=== PATIENT | male | born 1960 | race Two or more races ===

== ENCOUNTER 2018-09-28 15:59 | Emergency (ER) | payer OTHER ==
[~2018-09-28] VITALS: Ht 162.6 cm; Wt 86.2 kg
[2018-09-28 16:31] LABS: Basophils # (auto) 0.1 uL; Basophils % (auto) 0.5 % (0.0-2.0); Eosinophils # (auto) 1.5 uL; Eosinophils % (auto) 12.6 % (0.0-7.0); Hematocrit 43.4 % (41.0-53.0); Hemoglobin 14.8 g/dL (13.5-17.5); Lymphocytes # (auto) 1.9 uL; Lymphocytes % (auto) 15.7 % (10.0-50.0); Mean Corpuscular Hgb Conc. 34.1 g/dL (32.0-36.0); Mean Corpuscular Volume 90.8 fL (80.0-100.0); Monocytes # (auto) 0.9 uL; Monocytes % (auto) 7.8 % (0.0-12.0); Neutrophils # (auto) 7.7 uL; Neutrophils % (auto) 63.4 % (37.0-80.0); Nucleated Red Blood Cells % 0.3 %; Platelet Count (auto) 321 10^3/uL (140-450); Red Blood Cells 4.78 10^6/uL (4.5-5.90); Red Cell Distribution Width 13.8 % (11.8-14.3); White Blood Cell 12.1 10^3/uL (4.4-10.8)
[2018-09-28 16:46] LABS: Alanine Aminotransferase 44 U/L (16-61); Albumin 3.8 g/dL (3.4-5.0); Anion Gap 11 (5-15); Blood Urea Nitrogen 28 mg/dL (7-18); Carbon Dioxide 22 mmol/L (21-32); Chloride 109 mmol/L (98-107); Glucose 123 mg/dL (74-106); Potassium 3.9 mmol/L (3.5-5.1); Sodium 142 mmol/L (136-145)
[2018-09-28 16:49] LABS: INR < 0.93 (0.9-1.15); Partial Thromboplastin Time 26.3 sec (23.64-32.05)
[2018-09-28 16:51] LABS: Alkaline Phosphatase 108 U/L (45-117); Aspartate Aminotransferase 31 U/L (15-37); BUN/Creatinine Ratio 16.8; Bilirubin, Total 0.3 mg/dL (0.2-1.0); GFR African American 54 mL/min; GFR Non-African American 45 mL/min; Total Protein 8.2 g/dL (6.4-8.2)
[2018-09-28] MEDS ORDERED: cefTRIAXone 1GM/50ML D5W 50 ML IV ONE (17:15)
[2018-09-28] MEDS ORDERED: FUROSEMIDE 40 MG/4 ML VIAL IV ONE (17:15)
[2018-09-28] MEDS ORDERED: AZITHROMYCIN 500MG/ 250ML 250 ML IV ONE (17:15)
[2018-09-28 22:56] LABS: Urine Bacteria NONE SEEN /hpf (None Seen); Urine Blood Negative /uL (Negative); Urine Mucus FEW (None Seen); Urine Specific Gravity 1.017 (1.001-1.035); Urine WBC <1 /hpf (0 - 3)
[2018-09-29] MEDS ORDERED: IPRATROPIUM BROM 0.5 MG/2.5ML INH SOL NEB ONE (01:00)
[2018-09-29] MEDS ORDERED: ALBUTEROL SULF 2.5 MG/0.5ML(0.5%) NEB SOLN NEB ONE (01:00)
[2018-09-29] MEDS ORDERED: methylPREDNISolone SOD SUCC 125 MG/2 ML VL IV ONE (01:00)
[2018-09-29 04:29] VITALS: BP 124/78
[2018-09-29] MEDS ORDERED: LEVOFLOXACIN 500 MG TAB PO ONE (05:15)
== END 2018-09-29 05:30 | disposition home or self-care (01) ==
LOC: ER 15:59
DX: E11.22 Type 2 diabetes mellitus with diabetic chronic kidney disease (principal); I13.0 Hypertensive heart and chronic kidney disease with heart failure and stage 1 through stage 4 chronic kidney disease, or unspecified chronic kidney disease; J18.9 Pneumonia, unspecified organism; N18.9 Chronic kidney disease, unspecified; I50.89 Other heart failure; Z86.73 Personal history of transient ischemic attack (TIA), and cerebral infarction without residual deficits; Z90.49 Acquired absence of other specified parts of digestive tract
CPT/HCPCS: 36415; 36600; 71045; 80053; 81001; 82805; 83880; 84484; 85025; 85610; 85730; 93005; 94640; 96365; 96366; 96368; 96375; 99284; J0456; J0696; J1940; J2930; J7611; J7644

== ENCOUNTER 2024-10-23 10:52 | Emergency (ER) | payer OTHER ==
[~2024-10-23] VITALS: Ht 325.1 cm; Wt 78.0 kg
--- NOTE | 2024-10-23 11:18 | ED.PDOC ---
HPI (NEURO) HPI Comments 64 y.o male with PMHx of a CVA x 2019, HTN, and asthma, presents to the ED for a chief complaint of right sided weakness associated with difficulty speech that started at 1400 yesterday. Patient additionally has word finding difficulties, headaches x 1-2 days, SOB and dizziness. Patient is on Plavix and ASA 81mg due to previous CVA. Patient is tearful on presentation, alert and oriented. Chief Complaint: Right Sided Weakness Time Seen by MD: 11:00 Reviewed Notes: Nurses Notes, Medications, Allergies Information Source: Patient, Relative (Mother) Mode of Arrival: Ambulatory Severity: Moderate Dizziness/Weakness Severity: Unable to do activities Headache Severity: Moderate Timing: Hours Duration: Since onset Headache Quality: Aching, Sharp Headache Location: Generalized Onset: At rest Circumstances: Spontaneous Symptoms: Weakness, Difficult speech History of: CVA, Hypertension Associated Signs and Symptoms: Weakness Past Medical History PAST MEDICAL HISTORY: Asthma, CVA, HTN Surgical History: PTCA Family History Family History: Reviewed,noncontributory to illness Social History Smoker: Non-Smoker Alcohol: Denies ETOH Use Drugs: Denies Drug Use Lives In: Home Constitutional: denies: chills, diaphoresis, fatigue, fever, malaise, sweats, weakness, others EENTM: denies: blurred vision, double vision, ear bleeding, ear discharge, ear drainage, ear pain, ear ringing, eye pain, eye redness, hearing loss, mouth pain, mouth swelling, nasal discharge, nose bleeding, nose congestion, nose pain, photophobia, tearing, throat pain, throat swelling, voice changes, others Respiratory: reports: SOB at rest, shortness of breath; denies: cough, hemoptysis, orthopnea, SOB with excertion, stridor, wheezing, others Cardiovascular: denies: chest pain, dizzy spells, diaphoresis, Dyspnea on exertion, edema, irregular heart beat, left arm pain, lightheadedness, palpitations, PND, syncope, others Gastrointestinal: denies: abdomen distended, abdominal pain, blood streaked bowels, constipated, diarrhea, dysphagia, difficulty swallowing, hematemesis, melena, nausea, poor appetite, poor fluid intake, rectal bleeding, rectal pain, vomiting, others Genitourinary: denies: burning, dysuria, flank pain, frequency, hematuria, incontinence, penile discharge, penile sore, pain, testicle pain, testicle swelling, urgency, others Neurological: reports: dizziness, headache, right sided weakness, speech problems; denies: fainting, left sided numbness, left sided weakness, numbness, paresthesia, pre-existing deficit, right sided numbness, seizure, tingling, tremors, weakness, others Musculoskeletal: denies: back pain, gout, joint pain, joint swelling, muscle pain, muscle stiffness, neck pain, others Integumetry: denies: bruises, change in color, change in hair/nails, dryness, laceration, lesions, lumps, rash, wounds, others Allergic/Immunocompromised: denies: Difficulty Healing, Frequent Infections, Hives, Itching, others Hematologic/Lymphatic: denies: anemia, blood clots, easy bleeding, easy bruising, swollen glands, others Endocrine: denies: excessive hunger, excessive sweating, excessive thirst, excessive urination, flushing, intolerance to cold, intolerance to heat, unexplained weight gain, unexplained weight loss, others Psychiatric: denies: anxiety, bipolar disorder, depression, hopeless, panic di sorder, schizophrenia, sleepless, suicidal, others All Other Systems: Reviewed and Negative Physical Exam General Appearance: Mild Distress, Other (Tearful on examination ) HEENT: Normal ENT Inspection Neck: Normal Inspection Respiratory: No Accessory Muscle Use, No Respiratory Distress Cardiovascular: Normal Peripheral Pulses, Regular Rate/Rhythm Breast Exam: Deferred Gastrointestinal: NOT DONE Genitalia: Deferred Pelvic: Deferred Rectal: Deferred Extremities: Normal inspection Neurologic: Alert, Motor Weakness (right sided ), Speech Problem ( word finding difficulties) Cerebellar Function: Unable to Test Reflexes: NOT DONE Skin: Dry, Normal Color Lymphatic: NOT DONE Was a procedure done? Was a procedure done?: No Differential Diagnosis (SZ) CVA: CVA, Electrolyte Imbalance, Encephalopathy, TIA X-Ray, Labs, Meds, VS Vital Signs Date Time Temp Pulse Resp B/P (MAP) Pulse Ox O2 Delivery O2 Flow Rate FiO2 10/23/24 10:57 111 10/23/24 10:54 98.4 110 18 158/105 94 98.4 Lab Test 10/23/24 13:11 10/23/24 11:30 Range/Units Troponin I High Sensitivity 39 49 </=54 ng/L White Blood Count 9.2 4.4-10.8 10^3/uL Red Blood Count 6.16 H 4.5-5.90 10^6/uL Hemoglobin 15.8 13.5-17.5 g/dL Hematocrit 48.6 41.0-53.0 % Mean Corpuscular Volume 78.9 L 80.0-100.0 fL Mean Corpuscular Hemoglobin 25.7 L 28.0-32.0 pg Mean Corpuscular Hemoglobin Concent 32.5 32.0-36.0 g/dL Red Cell Distribution Width 18.3 H 11.8-14.3 % Platelet Count 390 140-450 10^3/uL Mean Platelet Volume 8.1 6.9-10.8 fL Neutrophils (%) (Auto) 67.2 37.0-80.0 % Lymphocytes (%) (Auto) 23.4 10.0-50.0 % Monocytes (%) (Auto) 7.1 0.0-12.0 % Eosinophils (%) (Auto) 2.0 0.0-7.0 % Basophils (%) (Auto) 0.3 0.0-2.0 % Neutrophils # (Auto) 6.2 1.6-8.6 10 ^3/uL Lymphocytes # (Auto) 2.2 0.4-5.4 10 ^3/uL Monocytes # (Auto) 0.7 0-1.3 10 ^3/uL Eosinophils # (Auto) 0.2 0-0.8 10 ^3/uL Basophils # (Auto) 0 0-0.2 10 ^3/uL Nucleated Red Blood Cells 0.1 % Prothrombin Time 10.0 9.3-11.8 sec Prothrombin Time INR 0.94 0.9-1.15 Activated Partial Thromboplast Time 25.8 24.5-34.5 SEC Sodium Level 140 136-145 mmol/L Potassium Level 4.5 3.5-5.1 mmol/L Chloride Level 103 98-107 mmol/L Carbon Dioxide Level 27 20-31 mmol/L Anion Gap 10 5-15 Blood Urea Nitrogen 11 9-23 mg/dL Creatinine 1.35 H 0.700-1.30 mg/dL Glomerular Filtration Rate Calc 58 >90 mL/min BUN/Creatinine Ratio 8.1 L 10.0-20.0 Serum Glucose 203 H 74-106 mg/dL Calcium Level 9.9 8.7-10.4 mg/dL Magnesium Level 1.8 1.6-2.6 mg/dL Total Bilirubin 0.4 0.2-1.0 mg/dL Aspartate Amino Transferase (AST) 19 13-40 U/L Alanine Aminotransferase (ALT) 20 7-40 U/L Alkaline Phosphatase 148 H 46-116 U/L B-Type Natriuretic Peptide 60.20 0-100 pg/mL Total Protein 7.5 5.7-8.2 g/dL Albumin 4.8 3.2-4.8 g/dL X-Ray, Labs, Meds, VS Comment This 64-year-old male presents to emergency room secondary to right-sided weakness. Patient has residual left-sided weakness from previous stroke. The patient states his symptoms began 2:00 p.m. yesterday. As such, a code stroke was not called. Here, there is no obvious findings on his CT head. However, x- ray shows a pneumonia. He had had blood cultures drawn and was started on Rocephin and azithromycin for is community-acquired pneumonia. However, secondary to his multiple findings, he will be admitted for further workup and management. Time of 1ST Reevaluation: 12:00 Reevaluation 1ST: Unchanged Patient Education/Counseling: Diagnosis, Treatment, Prognosis Family Education/Counseling: No Family Present Departure 1 Departure Time of Disposition: 13:44 Impression: Primary Impression: Right sided weakness Additional Impression: Pneumonia Disposition: ADMITTED INPATIENT Admit to: [facility] Condition: Guarded Discharged With: Self Critical Care Note Critical Care Time?: No Stability Stability form required: No I personally scribed for TANYA ORTIZ MD ([email or web address]) on 10/23/24 at 11:18. Electronically submitted by Alisa Alvarenga ([employer] I personally scribed for TANYA ORTIZ MD ([email or web address]) on 10/23/24 at 11:21. Electronically submitted by Alisa Alvarenga ([employer] TANYA ORTIZ MD Oct 23, 2024 11:18
[2024-10-23 11:57] LABS: Hematocrit 48.6 % (41.0-53.0); Hemoglobin 15.8 g/dL (13.5-17.5); Mean Corpuscular Hemoglobin 25.7 pg (28.0-32.0); Mean Corpuscular Volume 78.9 fL (80.0-100.0); Nucleated Red Blood Cells % 0.1 %
--- NOTE | 2024-10-23 11:59 | DVH ---
CLINICAL INFORMATION: Acute loss of consciousness. TECHNIQUE: Axial imaging was obtained through the brain without contrast. Coronal and sagittal reform atted images were obtained, reviewed, and stored. Images were reviewed in brain and bone windows. Al l CT scans at this medical facility are performed using dose modulation techniques as appropriate to a performed exam including the following: Automated exposure control was utilized; adjustment of the MA and/or KV according to patient size; and use of iterative reconstruction technique. CTDIvol = 53.4 8 mGy DLP = 966.04 mGy-cm COMPARISON: None FINDINGS: There is no acute intracranial hemorrhage. No mass effect or midline shift. Scattered areas of hypoattenuation are seen in the periventricular and subcortical white matter, which are nonspecif ic but most likely sequelae of small vessel ischemic disease. The ventricles and sulci are within nor mal limits in size for age. Basal cisterns are patent. The calvarium is unremarkable. Paranasal sinu ses and mastoid air cells are clear. IMPRESSION: 1. No CT evidence of acute intracranial abnormality. 2. Nonacute findings as described above.
--- NOTE | 2024-10-23 12:00 | DVH ---
CHEST RADIOGRAPH Indication: sob Technique: Single frontal view of the chest was obtained COMPARISON: None FINDINGS: Lines and Tubes: None Lungs: Minimal patchy left basilar infiltrate. The remaining lung zones are clear. No evidence of f ocal consolidation. Pleura: No effusion. No pneumothorax. Cardiomediastinal contours: Unremarkable Bones: Unremarkable IMPRESSION: 1. Minimal patchy left basilar pulmonary infiltrate.
[2024-10-23 12:11] LABS: INR 0.94 (0.9-1.15); Partial Thromboplastin Time 25.8 SEC (24.5-34.5); Prothrombin Time 10.0 sec (9.3-11.8)
[2024-10-23 12:12] LABS: Alanine Aminotransferase 20 U/L (7-40); Albumin 4.8 g/dL (3.2-4.8); Anion Gap 10 (5-15); BUN/Creatinine Ratio 8.1 (10.0-20.0); Bilirubin, Total 0.4 mg/dL (0.2-1.0); Blood Urea Nitrogen 11 mg/dL (9-23); Calcium 9.9 mg/dL (8.7-10.4); Carbon Dioxide 27 mmol/L (20-31); Chloride 103 mmol/L (98-107); Magnesium 1.8 mg/dL (1.6-2.6); Potassium 4.5 mmol/L (3.5-5.1); Sodium 140 mmol/L (136-145); Total Protein 7.5 g/dL (5.7-8.2)
[2024-10-23 12:17] LABS: Alkaline Phosphatase 148 U/L (46-116); Glucose 203 mg/dL (74-106)
[2024-10-23] MEDS: cefTRIAXone 1GM/50ML D5W 50 ML IV ONE (14:02)
[2024-10-23] MEDS: SODIUM CHLORIDE 0.9% 1,000 ML IV ONE (14:27)
[2024-10-23] MEDS: AZITHROMYCIN 500MG/ 250ML 250 ML IV ONE (14:28)
[2024-10-23] MEDS ORDERED: METH4PAK PO (15:34)
[2024-10-23] MEDS ORDERED: LEVO750T40 PO (15:44)
[2024-10-23] MEDS ORDERED: ALBUAER3 IN (15:45)
[2024-10-23] MEDS ORDERED: ATOR40TA52 PO (15:46)
[2024-10-23] MEDS: ALBUTEROL SULF 2.5 MG/0.5ML(0.5%) NEB SOLN NEB ONE (15:47)
[2024-10-23] MEDS: IPRATROPIUM BROM 0.5 MG/2.5ML INH SOL NEB ONE (15:47)
--- NOTE | 2024-10-23 15:53 | DVH ---
Carotid Duplex Date: 10/23/2024 03:16 PM Clinical History: Carotid stenosis evaluation Comparison: None Technique: Duplex Doppler evaluation of the extracranial carotid and vertebral arteries including col or Doppler and spectral/pulsed waveform analysis was performed. Findings: RIGHT SIDE: The peak systolic velocities are 89 cm/s in the distal CCA and 123 cm/s in the proximal ICA.The ICA/C CA ratio is less than 2. The external carotid artery is patent with peak systolic velocity of 153 cm/s proximally. The right vertebral artery is not definitely visualized. LEFT SIDE: The peak systolic velocities are 69 cm/s in the distal CCA and 107 cm/s in the proximal ICA.. The ICA /CCA ratio is less than 2. The external carotid artery is patent with peak systolic velocity of 162 cm/s proximally. There is appropriate antegrade flow in the left vertebral artery. IMPRESSION: No hemodynamically significant stenosis noted in the right carotid system. No hemodynamically significant stenosis noted in the left carotid system. The right vertebral artery is not definitely visualized. Reference: Radiology 2003; 229:340-346
[2024-10-23] MEDS: methylPREDNISolone SOD SUCC 40 MG/ML VL IV ONE (16:10)
--- NOTE | 2024-10-23 16:22 | DVHDS2 ---
Discharge Summary Date of Admission Date of Discharge: Oct 23, 2024 Labs/Diagnostic Data: Laboratory Results Test 10/23/24 14:21 10/23/24 11:30 Troponin I High Sensitivity 38 ng/L (</=54) White Blood Count 9.2 10^3/uL (4.4-10.8) Red Blood Count 6.16 10^6/uL (4.5-5.90) Hemoglobin 15.8 g/dL (13.5-17.5) Hematocrit 48.6 % (41.0-53.0) Mean Corpuscular Volume 78.9 fL (80.0-100.0) Mean Corpuscular Hemoglobin 25.7 pg (28.0-32.0) Mean Corpuscular Hemoglobin Concent 32.5 g/dL (32.0-36.0) Red Cell Distribution Width 18.3 % (11.8-14.3) Platelet Count 390 10^3/uL (140-450) Mean Platelet Volume 8.1 fL (6.9-10.8) Neutrophils (%) (Auto) 67.2 % (37.0-80.0) Lymphocytes (%) (Auto) 23.4 % (10.0-50.0) Monocytes (%) (Auto) 7.1 % (0.0-12.0) Eosinophils (%) (Auto) 2.0 % (0.0-7.0) Basophils (%) (Auto) 0.3 % (0.0-2.0) Neutrophils # (Auto) 6.2 10 ^3/uL (1.6-8.6) Lymphocytes # (Auto) 2.2 10 ^3/uL (0.4-5.4) Monocytes # (Auto) 0.7 10 ^3/uL (0-1.3) Eosinophils # (Auto) 0.2 10 ^3/uL (0-0.8) Basophils # (Auto) 0 10 ^3/uL (0-0.2) Nucleated Red Blood Cells 0.1 % Prothrombin Time 10.0 sec (9.3-11.8) Prothrombin Time INR 0.94 (0.9-1.15) Activated Partial Thromboplast Time 25.8 SEC (24.5-34.5) Sodium Level 140 mmol/L (136-145) Potassium Level 4.5 mmol/L (3.5-5.1) Chloride Level 103 mmol/L (98-107) Carbon Dioxide Level 27 mmol/L (20-31) Anion Gap 10 (5-15) Blood Urea Nitrogen 11 mg/dL (9-23) Creatinine 1.35 mg/dL (0.700-1.30) Glomerular Filtration Rate Calc 58 mL/min (>90) BUN/Creatinine Ratio 8.1 (10.0-20.0) Serum Glucose 203 mg/dL (74-106) Calcium Level 9.9 mg/dL (8.7-10.4) Magnesium Level 1.8 mg/dL (1.6-2.6) Total Bilirubin 0.4 mg/dL (0.2-1.0) Aspartate Amino Transferase (AST) 19 U/L (13-40) Alanine Aminotransferase (ALT) 20 U/L (7-40) Alkaline Phosphatase 148 U/L (46-116) B-Type Natriuretic Peptide 60.20 pg/mL (0-100) Total Protein 7.5 g/dL (5.7-8.2) Albumin 4.8 g/dL (3.2-4.8) Other Laboratory Tests 10/23/24 11:30 Brief Hx & Hospital Course: Patient is a 64-year-old male with past medical history of COPD, history of CVA with left-sided deficits and speech difficulty, type 2 diabetes, spinal stenosis, hypertension, CKD stage III, history of NV with 2 stents in 2019 who presents with complaints of right-sided weakness for the past day and associated shortness of breath with headache. Patient presented with vitals notable for sinus tachycardia in the 110s. Pulse ox was noted to be greater than 94% without any signs of respiratory distress. CBC was within normal limits. BMP revealed creatinine of 1.35 consistent with patient's history of CKD stage III. Troponin was nonelevated. BNP was not elevated. Chest x-ray was done which suggested minimal patchy left pulmonary. Patient was given 1 L NS bolus, azithromycin, Solu-Medrol and DuoNeb breathing treatment. Patient also underwent CT brain without contrast which did not reveal any acute intracranial abnormalities. A carotid ultrasound was done which did not reveal any significant stenosis. Patient was evaluated at bedside and was noted to be tearful at times during his interview. He is accompanied by his mother. She assists in providing some of the history. She notes that the patient has been lethargic. Presented today due to increased weakness. She notes that the patient is at his baseline in terms of his speech difficulty. His weakness appears to be equal on the right upper and lower extremity. Patient's symptoms were noted to began at 1400 the day prior to admission. Physical exam did not reveal any new facial droop. Movement appears symmetrical in his extremities with some decreased movement that is chronically present on his left side. Patient notes that he takes aspirin and Plavix for his prior stroke and has been compliant with his medication. Patient was monitored for several hours with no worsening changes in symptoms. Patient was discharged on Levaquin, Medrol Dosepak, albuterol inhaler for his pneumonia. Patient is to continue aspirin and Plavix for his prior CVA. Although patient's presentation is consistent with generalized weakness due to underlying infection, I have informed the patient that we will be obtaining an MRI brain stat outpatient the following day to rule out any new CVA. Patient is already on appropriate medical therapy for CVA of aspirin and Plavix. Atorvastatin 40 mg was prescribed. Patient was given ER return precautions if symptoms worsen or do not improve. Patient and accompanying mother were in agreement with the plan. Overall, patient discharged in stable condition. [facility] case management to arrange imaging and follow-up appointments. Condition at Discharge: Good Final Diagnosis/Problems List Pneumonia Secondary Diagnosis: Generalized Weakness without Focal Deficit Discharge Disposition: Home Discharge Instruct/Medications Diet: Cardiac 2g Na,low cholest Activity: No Restrictions, As Tolerated Follow Up/Referral: MRI brain WO contrast to be completed outpatient. [facility] Case Management will contact you for appointment. Medications: Continue aspirin and plavix as taking previously. Take atorvastatin 40mg daily. Take levaquin, medrol dose pack and albuterol inhaler for pneumonia. Scheduled Atorvastatin Calcium (Atorvastatin Calcium), 40 MG PO DAILY Levofloxacin Hemihydrate (Levofloxacin), 1 TAB PO DAILY Methylprednisolone (Medrol Dosepak), 4 MG PO UD Scheduled PRN Albuterol Sulfate (Ventolin Mdi), 90 MCG IN Q4HP PRN Discharge Statement: "Patient was advised to return to the ER or call 911 if any headaches, dizziness, shortness of breath, chest pain, abdominal pain, bleeding, fevers, or worsening of medical condition. Patient was counseled about treatment plan, medications, possible side effects, patientverbalized understanding. All questions were answered to the best of my ability. This discharge took greater then 30 minutes in planning, reviewing documentation, counseling the patient, and discussing with other team members." ASSESSMENT ASSESSMENT Assessment Pneumonia GM SELF DO Oct 23, 2024 16:22
[2024-10-23 17:03] VITALS: BP 165/96; PULSE 113; RESP 20; TEMP 98.1; O2SAT 94
--- NOTE | 2024-10-24 07:42 | ECG ---
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
== END 2024-10-23 17:05 | disposition home or self-care (01) ==
LOC: EDUNIT# 10:52 → ER 10:52
DX: J18.9 Pneumonia, unspecified organism (principal); R53.1 Weakness; R06.02 Shortness of breath; I10 Essential (primary) hypertension; Z79.899 Other long term (current) drug therapy; Z86.73 Personal history of transient ischemic attack (TIA), and cerebral infarction without residual deficits; Z79.02 Long term (current) use of antithrombotics/antiplatelets
CPT/HCPCS: 36415; 70450; 71045; 80053; 82947; 83735; 83880; 84484; 85025; 85610; 85730; 87040; 93005; 93886; 94640; 96365; 96366; 96368; 96375; 99285; J0456; J0696; J2919; J7030

== ENCOUNTER 2024-11-22 11:30 | Emergency (ER) | payer MEDICAID, OTHER ==
[~2024-11-22] VITALS: Ht 167.6 cm; Wt 80.0 kg
[~2024-11-22 11:30] MED LIST: ALBUAER3 IN; ATOR40TA52 PO; LEVO750T40 PO; METH4PAK PO
--- NOTE | 2024-11-22 12:23 | DVH ---
EXAM: CT CT AB PEL WO CON-NO ORAL OR IV INDICATION: flank pain TECHNIQUE: Volumetric multidetector CT images of the abdomen and pelvis were obtained without contras t. All CT scans at this facility use dose modulation, iterative reconstruction, and/or weight based d osing when appropriate to reduce radiation dose to as low as reasonably achievable. COMPARISON: None FINDINGS: [LOWER CHEST]: The partially visualized lung bases are clear without a pleural effusion. The cardiac size is normal without pericardial effusion. Coronary artery calcifications. [LIVER]: Normal hepatic size without suspicious focal lesion. [GALLBLADDER AND BILIARY TREE]: Surgically absent. [SPLEEN]: Unremarkable. [PANCREAS]: Unremarkable. [ADRENAL GLANDS]: Unremarkable [KIDNEYS]: No hydronephrosis. No nephroureterolithiasis. [BLADDER]: Minimal circumferential bladder wall thickening. Consider correlation with urinalysis. [REPRODUCTIVE ORGANS]: Unremarkable. [BOWEL/MESENTERY]: Stomach is normal. No CT evidence of bowel obstruction. Mild descending and sigmoi d colonic diverticulosis. Mild stool burden. [ASCITES]: Absent [LYMPHADENOPATHY]: No pathologically enlarged lymph nodes by CT size criteria [VASCULATURE]: No aneurysmal dilatation. [ABDOMINAL WALL]: Unremarkable. [MUSCULOSKELETAL]: No acute fracture or aggressive focal osseous lesion. Multifocal degenerative ogden ge of the visualized spine. IMPRESSION: 1. No hydronephrosis or nephroureterolithiasis. 2. Minimal circumferential bladder wall thickening. 3. Consider correlation with urinalysis. 4. Mild stool burden.
[2024-11-22 12:27] LABS: Hematocrit 47.4 % (41.0-53.0); Hemoglobin 15.7 g/dL (13.5-17.5); Mean Corpuscular Hemoglobin 26.3 pg (28.0-32.0); Mean Corpuscular Volume 79.4 fL (80.0-100.0); Nucleated Red Blood Cells % 0.1 %
[2024-11-22 12:39] LABS: Alanine Aminotransferase 28 U/L (7-40); Albumin 4.6 g/dL (3.2-4.8); Anion Gap 11 (5-15); BUN/Creatinine Ratio 7.5 (10.0-20.0); Bilirubin, Total 0.6 mg/dL (0.2-1.0); Blood Urea Nitrogen 9 mg/dL (9-23); Calcium 9.6 mg/dL (8.7-10.4); Carbon Dioxide 27 mmol/L (20-31); Chloride 104 mmol/L (98-107); Potassium 3.8 mmol/L (3.5-5.1); Sodium 142 mmol/L (136-145); Total Protein 7.6 g/dL (5.7-8.2)
[2024-11-22 12:41] LABS: Alkaline Phosphatase 159 U/L (46-116); Glucose 155 mg/dL (74-106)
[2024-11-22 13:12] LABS: Lactic Acid w/Reflex 2.4 mmol/L (0.4-2.0)
--- NOTE | 2024-11-22 13:13 | ED.PDOC ---
General HPI Comments HPI: 64 y/o M, with PMHx of DM, HTN, CKF, and COPD presents to the ED for CC of flank pain. Patient states, he has been experiencing constant right-sided flank pain that radiates to his lower back [id number]. Patient reports, pain to worsen with repositioning. Patient denies nausea, vomiting, fever, hematuria, scrotal swelling, or penile discharge. No other symptoms or modifying factors are present at this time. Initial Vitals BP: HR: RR: O2 Sat: Temp: Past Medical history: DM, CVA, HTN, CKF, COPD, RIGHT-SIDED DEFICITS Past Surgical history: DENIES ANY Medications: Plavix, Aspirin Social History: Denies smoking, ETOH, and drug use. Allergies: Doxycycline HPI: Poor Historian. REVIEW OF SYSTEMS: CONSTITUTIONAL: Denies acute: fever, diaphoresis, chills, generalized weakness. HEAD: Denies acute: headache, photophobia Eyes: Denies acute: Double vision, vision loss, eye pain, eye discharge. EARS: Denies acute: tinnitus, hearing loss, ear discharge, ear pain, THROAT: Denies acute: sore throat, swelling, difficulty swallowing , pain with swallowing, change in voice. NECK: Denies acute: neck pain, neck swelling, stiff neck. HEART: Denies acute : chest pain, palpitations, LUNGS: Denies acute: SOB, wheezing, cough, hemoptysis ABDOMEN: Denies acute: abdominal pain, Nausea, Vomiting, diarrhea, melena , hematemesis, hematochezia SKIN: Denies acute: rash, redness, lesions, itchiness. EXTREMITIES: Denies acute: calf pain, numbness, tingling, weakness, denies pain in extremity. Denies acute: Low back pain. Neuro: Denies acute: focal neurological deficit, motor or sensory focal neurological deficit, tremors, seizure like activity, confusion, dizziness, change in mental status, loss of bowel or bladder function, cauda equina like symptoms. : Denies acute: dysuria, hematuria, increase in urinary frequency. PSYCH: Denies acute: hallucination, suicidal ideation, homicidal ideation. PHYSICAL EXAM: General: ----moderate----acute distress, awake and alert. Head: normocephalic, atraumatic. Neck: supple, trachea is midline, no swelling. Throat: Normal phonation. Eyes:, no erythema, no purulent discharge, no proptosis, no icterus. Heart: regular rate, regular rhythm, no significant murmur appreciated. Lungs: no apparent respiratory distress, Able to speak in full sentences. No wheezing, no rhonchi, no crackles. No stridors Clear to auscultation bilaterally. Abdomen: non tender to palpation, non distended, soft, no guarding, no rebound, + bowel sounds. Neuro: Awake, Alert, oriented to name, self, situation, follows commands. At baseline with right-sided deficits from a previous stroke. GCS=15. Speech is normal. Skin: no petechia, no purpura, no cyanosis, non-pale, not jaundice. Lower extremities: --no - Pitting edema no deformity, no focal swelling, no calf TTP. Makes eye contact. Face: no apparent facial droop. Right CVA tenderness to percussion ED COURSE: DISCLAIMER: This medical document was created using an electronic medical record system with voice recognition software and computerized dictation system. Although this document has been carefully reviewed, there might still be some phonetic and typographical errors. Occasional wrong-word or "sound-alike" substitutions may have occurred due to the inherent limitations of voice recognition software. These areas are purely typographical due to imperfections of the software programs and do not reflect any compromise in the patient's medical care. Please read the chart carefully and recognize, using context, where these substitutions have occurred. Chief Complaint: Flank Pain Time Seen by MD: 12:00 Primary Care Provider: RAYNA Reviewed notes: Nurses Notes, Medications, Allergies Allergies: Coded Allergies: Doxycycline (Unverified Allergy, Severe, 10/23/24) No Known Drug Allergy (Verified Allergy, Unknown, 09/28/18) Home Meds Active Scripts Atorvastatin Calcium (ATORVASTATIN CALCIUM) 40 Mg Tab, 40 MG PO DAILY for 30 Days, #30 TAB 0 Refills Prov:GM SELF S DO 10/23/24 Albuterol Sulfate (VENTOLIN MDI) 90 Mcg Ih, 90 MCG IN Q4HP PRN for 30 Days, #30 INH 2 Refills Prov:GM SELF DO 10/23/24 Levofloxacin Hemihydrate (LEVOFLOXACIN) 750 Mg Tab, 1 TAB PO DAILY, #5 TAB Prov:GM SELF DO 10/23/24 Methylprednisolone (Medrol Dosepak) 4 Mg Abraham, 4 MG PO UD, #21 TAB UAD Prov:GM SELF DO 10/23/24 Information Source: Patient, Relative (Mother) Mode of Arrival: Wheelchair Severity: Moderate Inability to void: None Timing: Days Duration: Since onset Prehospital treatment: None Onset: Spontaneous Symptoms: None History of: None Location: (R) Flank Penile discharge: None Modifying factors: None associated signs and symptoms: Flank Pain Was a procedure done? Was a procedure done?: No Differential Diagnosis Kidney stone (Female): N/A Kidney stone (Male): Cholelithiasis, Strain, Urinary obstruction, Urolithiasis, Urinary tract infection, Other (Flank Pain;DDX include Nephrolethiasis, obstructive uropathy, kidney cancer, renal infarct, intraabdominal neoplasm, lower lobe pneumonia, retroperitoneal hemorrhage, pancreatitis, aneurysm, dissection, musculoskeletal, rib contusion/trauma, hematoma, PYLONEPHRITIS, muscle strain, spinal disease. ) X-Ray, Labs, Meds, VS Vital Signs Date Time Temp Pulse Resp B/P (MAP) Pulse Ox O2 Delivery O2 Flow Rate FiO2 11/22/24 16:10 98.7 99 17 137/82 (100) 95 98.7 11/22/24 16:10 99 16 95 Room Air 11/22/24 15:56 97.7 104 18 150/90 (110) 95 97.7 11/22/24 13:16 97.5 75 16 158/92 (114) 95 97.5 11/22/24 11:32 98.2 102 18 140/95 97 98.2 Lab Test 11/22/24 14:01 11/22/24 12:07 11/22/24 11:56 Range/Units Lactic Acid Level 1.4 2.4 *H 0.4-2.0 mmol/L White Blood Count 8.4 4.4-10.8 10^3/uL Red Blood Count 5.97 H 4.5-5.90 10^6/uL Hemoglobin 15.7 13.5-17.5 g/dL Hematocrit 47.4 41.0-53.0 % Mean Corpuscular Volume 79.4 L 80.0-100.0 fL Mean Corpuscular Hemoglobin 26.3 L 28.0-32.0 pg Mean Corpuscular Hemoglobin Concent 33.1 32.0-36.0 g/dL Red Cell Distribution Width 16.8 H 11.8-14.3 % Platelet Count 427 140-450 10^3/uL Mean Platelet Volume 7.5 6.9-10.8 fL Neutrophils (%) (Auto) 71.0 37.0-80.0 % Lymphocytes (%) (Auto) 18.2 10.0-50.0 % Monocytes (%) (Auto) 7.1 0.0-12.0 % Eosinophils (%) (Auto) 3.3 0.0-7.0 % Basophils (%) (Auto) 0.4 0.0-2.0 % Neutrophils # (Auto) 6.0 1.6-8.6 10 ^3/uL Lymphocytes # (Auto) 1.5 0.4-5.4 10 ^3/uL Monocytes # (Auto) 0.6 0-1.3 10 ^3/uL Eosinophils # (Auto) 0.3 0-0.8 10 ^3/uL Basophils # (Auto) 0 0-0.2 10 ^3/uL Nucleated Red Blood Cells 0.1 % Sodium Level 142 136-145 mmol/L Potassium Level 3.8 3.5-5.1 mmol/L Chloride Level 104 98-107 mmol/L Carbon Dioxide Level 27 20-31 mmol/L Anion Gap 11 5-15 Blood Urea Nitrogen 9 9-23 mg/dL Creatinine 1.20 0.700-1.30 mg/dL Glomerular Filtration Rate Calc 67 >90 mL/min BUN/Creatinine Ratio 7.5 L 10.0-20.0 Serum Glucose 155 H 74-106 mg/dL Calcium Level 9.6 8.7-10.4 mg/dL Total Bilirubin 0.6 0.2-1.0 mg/dL Aspartate Amino Transferase (AST) 21 13-40 U/L Alanine Aminotransferase (ALT) 28 7-40 U/L Alkaline Phosphatase 159 H 46-116 U/L Total Protein 7.6 5.7-8.2 g/dL Albumin 4.6 3.2-4.8 g/dL Urine Color Yellow Yellow Urine Clarity Clear Clear Urine pH 6.0 5.0-9.0 Urine Specific [place] 1.019 1.001-1.035 Urine Protein 2+ H Negative Urine Ketones Negative Negative Urine Blood Negative Negative /uL Urine Nitrite Negative Negative Urine Bilirubin Negative Negative Urine Urobilinogen 3 H Negative mg/dL Urine Leukocyte Esterase Negative Negative /uL Urine RBC None seen 0 - 3 /hpf Urine Microscopic WBC 1 0-3 /HPF Urine Squamous Epithelial Cells Few <5 /hpf Urine Bacteria None seen None Seen /hpf Urine Mucus Few None Seen Urine Glucose Normal Normal mg/dL [place] [address] Ph: [phone] DIAGNOSTIC IMAGING Diagnostic Imaging Report : [id number] Signed PATIENT: VALERIA CHAO ACCT: [id number] UNIT: [id number] : 1960 LOC: ER ROOM / BED: / AGE / SEX: 64 / M ADM STATUS: REG ER SERVICE 1143 ORDERING PHYSICIAN: BECCA VIVAR DO PROCEDURE(s): ABPL - CT AB PEL WO CON-NO ORAL OR IV REASON: flank pain ORDER NUMBER(s): [id number], ACCESSION NUMBER(s): [id number] EXAM: CT CT AB PEL WO CON-NO ORAL OR IV INDICATION: flank pain TECHNIQUE: Volumetric multidetector CT images of the abdomen and pelvis were obtained without contrast. All CT scans at this facility use dose modulation, iterative reconstruction, and/or weight based dosing when appropriate to reduce radiation dose to as low as reasonably achievable. COMPARISON: None FINDINGS: [LOWER CHEST]: The partially visualized lung bases are clear without a pleural effusion. The cardiac size is normal without pericardial effusion. Coronary artery calcifications. [LIVER]: Normal hepatic size without suspicious focal lesion. [GALLBLADDER AND BILIARY TREE]: Surgically absent. [SPLEEN]: Unremarkable. [PANCREAS]: Unremarkable. [ADRENAL GLANDS]: Unremarkable [KIDNEYS]: No hydronephrosis. No nephroureterolithiasis. [BLADDER]: Minimal circumferential bladder wall thickening. Consider correlation with urinalysis. [REPRODUCTIVE ORGANS]: Unremarkable. [BOWEL/MESENTERY]: Stomach is normal. No CT evidence of bowel obstruction. Mild descending and sigmoid colonic diverticulosis. Mild stool burden. [ASCITES]: Absent [LYMPHADENOPATHY]: No pathologically enlarged lymph nodes by CT size criteria [VASCULATURE]: No aneurysmal dilatation. [ABDOMINAL WALL]: Unremarkable. [MUSCULOSKELETAL]: No acute fracture or aggressive focal osseous lesion. Multifocal degenerative change of the visualized spine. IMPRESSION: 1. No hydronephrosis or nephroureterolithiasis. 2. Minimal circumferential bladder wall thickening. 3. Consider correlation with urinalysis. 4. Mild stool burden. ATED BY: JENNIFER COOLEY MD DICTATED DATE/TIME: 11/22/24 1220 SIGNED BY: JENNIFER COOLEY MD SIGNED DATE/TIME: 11/22/24 1220 CC: Time of 1ST Reevaluation: 12:30 Reevaluation 1ST: Unchanged Patient Education/Counseling: Diagnosis, Treatment Family Education/Counseling: Diagnosis, Treatment Comments Patient does not want to be admitted to the hospital. He wants to get out of here Patient's pain improved after [place]. MDM: patient presented with the above HPI.---flank pain---workup was initiated. patient was found with the above mentioned diagnosis. the following medications were ordered: please refer to order lists of meds and tests obtained by myself Dr. Vivar. Patient ED course and VS have been stabilized. Patient has been reassessed in the ED and remained in a stable condition. Patient has been observed in the ED adequate length of time to insure improvement/stability. Escalation of care considered: Consideration of escalation to observation or admission Patient was DISCHARGED home in a stable condition. All the reports of any imaging studies that were ordered by myself were reviewed by myself. SEPSIS Sepsis Screen Date sepsis recognized/suspect: Nov 22, 2024 Time Sepsis recognized/suspect: 1132 Recent Procedure: No On Antibiotic Therapy: No Respiratory Rate >20: No Heart Rate >90: Yes Temp<36 C (96.8 F) or >38.3 C: No SBP <90 or MAP <65 mmHG: No New Acute Mental Status Change: No Is the patient on CPAP, BIPAP,: No Physician Orders Ct Ab Pel Wo Con-No Oral Or Iv (11/22/24 11:43) Glass Presser (11/22/24 ) Vital Signs Date Time Temp Pulse Resp B/P (MAP) Pulse Ox O2 Delivery O2 Flow Rate FiO2 11/22/24 16:10 98.7 99 17 137/82 (100) 95 98.7 11/22/24 16:10 99 16 95 Room Air 11/22/24 15:56 97.7 104 18 150/90 (110) 95 97.7 11/22/24 13:16 97.5 75 16 158/92 (114) 95 97.5 11/22/24 11:32 98.2 102 18 140/95 97 98.2 Laboratory Tests Test 11/22/24 12:07 11/22/24 14:01 Lactic Acid Level 2.4 mmol/L (0.4-2.0) *H 1.4 mmol/L (0.4-2.0) White Blood Count 8.4 10^3/uL (4.4-10.8) Departure 1 Departure Time of Disposition: 16:33 Impression: Primary Impression: Right flank pain Disposition: 01 HOME / SELF CARE / HOMELESS Condition: Stable Additional Instructions: Additional instructions: Please read all instructions provided in this packet carefully. You MUST follow-up with your primary care/family doctor in 1 to 2 days. If you are unable to see your primary care/family doctor, please return to our emergency room for re-assessment and re-evaluation in 1 to 2 days. Return to the emergency room here in our facility or to the nearest ER [facility] if your symptoms change or worsen. CONSULTATIONS: you MUST Follow-up for consultation as soon as possible with: -urology and gastroenterology in 1-2 days. Please call for appointment. You MUST call the consultants office yourself to make an appointment. You may need to arrange that through your insurance and/or your primary/family doctor. If you are unable to see the regulatory services consultant in 1 to 2 days, you must return to our emergency room (or any other ER of your choice) for re-assessment and re- evaluation. Adequate fluid hydration. Although you have been discharged from the Emergency Department, this does not mean that you have a "clean bill of health". No definitive diagnosis for your symptoms has been made today. It is possible that you are in the process of developing a serious illness. This is why you must return to the ED without fail if any new or worsening symptoms develop. Below is a copy of your radiological report for follow up: [facility] [address] [facility] [address] Ph: [phone] DIAGNOSTIC IMAGING Diagnostic Imaging Report : [id number] Signed PATIENT: VALERIA CHAO ACCT: [id number] UNIT: [id number] : 1960 LOC: ER ROOM / BED: / AGE / SEX: 64 / M ADM STATUS: REG ER SERVICE 1143 ORDERING PHYSICIAN: BECCA VIVAR DO PROCEDURE(s): ABPL - CT AB PEL WO CON-NO ORAL OR IV REASON: flank pain ORDER NUMBER(s): [id number], ACCESSION NUMBER(s): [id number] EXAM: CT CT AB PEL WO CON-NO ORAL OR IV INDICATION: flank pain TECHNIQUE: Volumetric multidetector CT images of the abdomen and pelvis were obtained without contrast. All CT scans at this facility use dose modulation, iterative reconstruction, and/or weight based dosing when appropriate to reduce radiation dose to as low as reasonably achievable. COMPARISON: None FINDINGS: [LOWER CHEST]: The partially visualized lung bases are clear without a pleural effusion. The cardiac size is normal without pericardial effusion. Coronary artery calcifications. [LIVER]: Normal hepatic size without suspicious focal lesion. [GALLBLADDER AND BILIARY TREE]: Surgically absent. [SPLEEN]: Unremarkable. [PANCREAS]: Unremarkable. [ADRENAL GLANDS]: Unremarkable [KIDNEYS]: No hydronephrosis. No nephroureterolithiasis. [BLADDER]: Minimal circumferential bladder wall thickening. Consider correlation with urinalysis. [REPRODUCTIVE ORGANS]: Unremarkable. [BOWEL/MESENTERY]: Stomach is normal. No CT evidence of bowel obstruction. Mild descending and sigmoid colonic diverticulosis. Mild stool burden. [ASCITES]: Absent [LYMPHADENOPATHY]: No pathologically enlarged lymph nodes by CT size criteria [VASCULATURE]: No aneurysmal dilatation. [ABDOMINAL WALL]: Unremarkable. [MUSCULOSKELETAL]: No acute fracture or aggressive focal osseous lesion. Multifocal degenerative change of the visualized spine. IMPRESSION: 1. No hydronephrosis or nephroureterolithiasis. 2. Minimal circumferential bladder wall thickening. 3. Consider correlation with urinalysis. 4. Mild stool burden. ATED BY: JENNIFER COOLEY MD DICTATED DATE/TIME: 11/22/24 1220 SIGNED BY: JENNIFER COOLEY MD SIGNED DATE/TIME: 11/22/24 1220 CC: Discharged With: Self, Relative Critical Care Note Critical Care Time?: No I personally scribed for BECCA VIVAR DO ([email or web address]) on 11/22/24 at 13:13. Electronically submitted by Caity Fitzgerald ([email or web address]). I personally scribed for BECCA VIVAR DO ([email or web address]) on 11/22/24 at 13:14. Electronically submitted by Caity Fitzgerald ([email or web address]). I personally scribed for BECCA VIVAR DO ([email or web address]) on 11/22/24 at 13:24. Electronically submitted by Caity Fitzgerald ([email or web address]). BECCA VIVAR DO Nov 22, 2024 13:13
[2024-11-22 14:35] LABS: Urine Protein, UAD 2+ (Negative)
[2024-11-22] MEDS: HYDROcodone-ACET 5/325MG TAB PO ONE (16:08)
[2024-11-22 16:10] VITALS: BP 137/82; PULSE 99; RESP 16; TEMP 98.7; O2SAT 95
== END 2024-11-22 16:44 | disposition home or self-care (01) ==
LOC: ER 11:30
DX: R10.9 Unspecified abdominal pain (principal); E11.9 Type 2 diabetes mellitus without complications; I10 Essential (primary) hypertension; J44.9 Chronic obstructive pulmonary disease, unspecified; Z86.73 Personal history of transient ischemic attack (TIA), and cerebral infarction without residual deficits; Z88.1 Allergy status to other antibiotic agents; Z79.899 Other long term (current) drug therapy
CPT/HCPCS: 36415; 74176; 80053; 81001; 83605; 85025

== ENCOUNTER 2024-11-23 11:40 | Outpatient (CLI) | payer MEDICAID, OTHER ==
[2024-11-23 13:37] LABS: Mean Corpuscular Volume 79.8 fL (80.0-100.0)
[2024-11-23 13:39] LABS: Hematocrit 48.1 % (41.0-53.0); Hemoglobin 15.7 g/dL (13.5-17.5); Mean Corpuscular Hemoglobin 26.1 pg (28.0-32.0); Nucleated Red Blood Cells % 0.0 %
[2024-11-23 15:40] LABS: Microalb/Creat Ratio, Urine 467.0
[2024-11-23 15:57] LABS: Alanine Aminotransferase 30 U/L (7-40); Albumin 4.4 g/dL (3.2-4.8); Anion Gap 11 (5-15); BUN/Creatinine Ratio 15.3 (10.0-20.0); Bilirubin, Total 0.4 mg/dL (0.2-1.0); Blood Urea Nitrogen 21 mg/dL (9-23); Calcium 9.8 mg/dL (8.7-10.4); Carbon Dioxide 24 mmol/L (20-31); Chloride 104 mmol/L (98-107); Cholesterol 182 mg/dL (< 200); HDL Cholesterol 57 mg/dL (40-59); Sodium 139 mmol/L (136-145); Total Protein 7.0 g/dL (5.7-8.2)
[2024-11-23 15:58] LABS: Alkaline Phosphatase 149 U/L (46-116); Glucose 167 mg/dL (74-106); Triglycerides 249 mg/dL (< 150)
[2024-11-23 16:11] LABS: Potassium 5.7 mmol/L (3.5-5.1)
== END 2024-11-23 17:00 | disposition home or self-care (01) ==
LOC: LAB 11:40
PROVIDERS: ATTEND Internal Medicine
DX: E11.42 Type 2 diabetes mellitus with diabetic polyneuropathy (principal); E78.5 Hyperlipidemia, unspecified; J15.8 Pneumonia due to other specified bacteria
CPT/HCPCS: 36415; 80053; 80061; 82043; 82570; 82607; 83036; 85025

== ENCOUNTER 2024-11-30 12:03 | Outpatient (CLI) | payer MEDICAID, OTHER ==
[2024-11-30 12:41] LABS: Urine Protein, UAD 2+ (Negative)
[2024-11-30 13:01] LABS: Alanine Aminotransferase 26 U/L (7-40); Albumin 4.6 g/dL (3.2-4.8); Anion Gap 10 (5-15); BUN/Creatinine Ratio 14.0 (10.0-20.0); Bilirubin, Total 0.6 mg/dL (0.2-1.0); Blood Urea Nitrogen 23 mg/dL (9-23); Calcium 9.9 mg/dL (8.7-10.4); Carbon Dioxide 26 mmol/L (20-31); Chloride 106 mmol/L (98-107); HDL Cholesterol 48 mg/dL (40-59); Potassium 4.6 mmol/L (3.5-5.1); Sodium 142 mmol/L (136-145); Total Protein 7.7 g/dL (5.7-8.2)
[2024-11-30 13:05] LABS: Alkaline Phosphatase 136 U/L (46-116); Cholesterol 215 mg/dL (< 200); Creatine Kinase IFCC 250 U/L (46-171); Glucose 159 mg/dL (74-106); Triglycerides 293 mg/dL (< 150)
[2024-11-30 13:11] LABS: Microalb/Creat Ratio, Urine 322.0
== END 2024-12-01 17:00 | disposition home or self-care (01) ==
LOC: LAB 12:03
PROVIDERS: ATTEND Internal Medicine
DX: E11.22 Type 2 diabetes mellitus with diabetic chronic kidney disease (principal); N18.31 Chronic kidney disease, stage 3a; E78.5 Hyperlipidemia, unspecified
CPT/HCPCS: 36415; 80053; 80061; 81001; 82043; 82550; 82570; 87086